=== PATIENT | male | born 2000 | race Two or more races ===

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

== ENCOUNTER 2021-02-17 08:45 | Emergency (ER) | payer BC, MEDICAID ==
[~2021-02-17] VITALS: Ht 170.2 cm; Wt 65.8 kg
--- NOTE | 2021-02-17 09:30 | NUR ---
Patient came in to the er c/o suicidal ideation 'i want to run trhough traffic", want's voluntary admission to [facility]. Sitter at bedside for constant monitoring. Kept comfortable, will continue to monitor accordingly.
[2021-02-17 10:17] LABS: BASOPHILS # (AUTO) 0.1 K/uL (0.0-0.2); BASOPHILS % (AUTO) 0.6 % (0.0-2.0); EOSINOPHILS % (AUTO) 0.1 % (0.0-6.0); HEMATOCRIT 42 % (39-51); LYMPHOCYTES # (AUTO) 0.5 K/uL (0.8-4.8); LYMPHOCYTES % (AUTO) 3.6 % (20.0-44.0); MEAN CORPUSCULAR HGB CONC 33 g/dl (31.0-36.0); MEAN CORPUSCULAR VOLUME 90 fL (80-96); MONOCYTES # (AUTO) 0.4 K/uL (0.1-1.30); MONOCYTES % (AUTO) 2.9 % (2.0-12.0); NEUTROPHILS # (AUTO) 12.4 K/uL (1.8-8.9); NEUTROPHILS % (AUTO) 92.8 % (43.0-81.0); PLATELET COUNT (AUTO) 231 K/uL (150-450); RED BLOOD CELL COUNT(AUTO) 4.71 MIL/uL (4.5-6.0); WHITE BLOOD COUNT (AUTO) 13.3 K/uL (4.3-11.0)
[2021-02-17 10:29] LABS: CALCIUM, SERUM 8.5 mg/dL (8.5-10.1); CARBON DIOXIDE 27 mmol/L (21-32); CHLORIDE 98 mmol/L (98-107); CREATININE 0.8 mg/dL (0.6-1.3); GLUCOSE 105 mg/dL (74-106); POTASSIUM 3.2 mmol/L (3.5-5.1); SODIUM SERUM 133 mmol/L (136-145); UREA NITROGEN, BLOOD 17 mg/dL (7-18)
[2021-02-17 10:35] LABS: ALANINE AMINOTRANSFERASE 35 U/L (12-78); ALBUMIN 3.7 g/dL (3.4-5.0); ALKALINE PHOSPHATASE 100 U/L (46-116); ASPARTATE AMINOTRANSFERASE 24 U/L (15-37); BILIRUBIN,DIRECT 0.2 mg/dL (0.0-0.2); TOTAL PROTEIN, SERUM 7.5 g/dL (6.4-8.2)
[2021-02-17 10:36] LABS: ACETAMINOPHEN 0 ug/ml (10-30); ALCOHOL, BLOOD < 3 mg/dL (0-0)
--- NOTE | 2021-02-17 10:58 | NUR ---
URINE SAMPLE SENT TO LAB
[2021-02-17] MEDS ORDERED: POTASSIUM CHLORIDE 20 MEQ TAB.PRT.SR PO ONE ×2 (11:00→11:09)
[2021-02-17] MEDS ORDERED: OLANZAPINE 5 MG TABLET ONE (11:09)
[2021-02-17 11:14] LABS: BILIRUBIN,URINE Negative (NEGATIVE); LEUKOCYTE ESTERASE ,URINE Negative (NEGATIVE); NITRITE, URINE Negative (NEGATIVE); PROTEIN,URINE Negative (NEGATIVE); UGLUCOSE Negative (NEGATIVE); UROBILINOGEN,URINE 0.2 EU/dL (0.2)
[2021-02-17 11:15] LABS: COLOR,URINE STRAW (YELLOW)
[2021-02-17] MEDS ORDERED: OLANZAPINE 5 MG TABLET PO ONE (11:30)
--- NOTE | 2021-02-17 11:45 | NUR ---
covid swab done and sent to the lab
--- NOTE | 2021-02-17 11:59 | NUR ---
THE PATIENT IS SERVED WITH LUNCH.
[2021-02-17 12:30] LABS: LYMPHOCYTES % (MANUAL) 6 % (16-48); MONOCYTES % (MANUAL) 2 % (0-11.0); NEUTROPHILS % (MANUAL) 92 (42-76)
--- NOTE | 2021-02-17 17:00 | NUR ---
CLINICALS FAXED [place] [facility] [place].
--- NOTE | 2021-02-17 17:10 | NUR ---
[place] [facility] [place] AND STATED THEY NEEDED UPDATED FACESHEET WITH INSURANCE FOR PRESUMT[facility].
--- NOTE | 2021-02-17 17:11 | NUR ---
FAXED UPDATED FACESHEET TO [facility].
--- NOTE | 2021-02-17 18:28 | NUR ---
PT ACCEPTED TO [facility]. PLEASE GIVE REPORT TO [phone].
--- NOTE | 2021-02-17 19:09 | NUR ---
CALLED [facility] FOR TRANSPORT TO [facility]. ETA 90 MINUTES.
--- NOTE | 2021-02-17 19:14 | NUR ---
REPORT GIVEN TO NURSE GRANADOS FROM [facility]
--- NOTE | 2021-02-17 19:58 | NUR ---
REPORT GIVEN TO [facility] 240.
[2021-02-17 20:22] VITALS: BP 127/72
== END 2021-02-17 20:23 ==
LOC: ER 08:48
DX: R45.851 Suicidal ideations (principal); F20.9 Schizophrenia, unspecified; F31.9 Bipolar disorder, unspecified; Z20.822 Contact with and (suspected) exposure to COVID-19
CPT/HCPCS: 36415; 80048; 80076; 80143; 80307; 80320; 81003; 85007; 85025; 87426; 99285; C9803; G0480